=== PATIENT | male | born 1980 | race Caucasian/White ===

== ENCOUNTER 2025-05-05 18:01 | Inpatient (IN) | payer MEDICAID ==
[~2025-05-05] VITALS: Ht 188 cm; Wt 116.1 kg
[~2025-05-05 18:01] MED LIST: CYCL-1 PO
[2025-05-05 20:00] VITALS: BP 116/77; PULSE 81; RESP 14; TEMP 98.4; O2SAT 96
[2025-05-05 20:20] VITALS: RESP 14; O2SAT 96
[2025-05-05] MEDS ORDERED: diphenhydrAMINE 25mg capsule PO PRN (21:30)
[2025-05-05] MEDS ORDERED: acetaminophen 325mg tablet PO PRN (21:30)
[2025-05-05] MEDS ORDERED: loperamide 2mg capsule PO PRN (21:30)
[2025-05-05] MEDS ORDERED: magnesium hydroxide 30ml (MOM) UD suspension PO PRN (21:30)
[2025-05-05] MEDS ORDERED: mag hydrox/Alum hydrox/simeth 30ml oral suspension PO PRN (21:30)
[2025-05-05] MEDS ORDERED: chlorproMAZINE 25mg tablet PO PRN (21:30)
[2025-05-05] MEDS ORDERED: BUSP10TA11 PO (21:36)
[2025-05-05] MEDS ORDERED: HYDR-3686 PO (21:41)
[2025-05-05] MEDS ORDERED: RAME8TAB24 PO (21:41)
[2025-05-05] MEDS: traZODone 50mg tablet PO SCH (23:10)
[2025-05-05] MEDS: hydrOXYzine 25 MG tablet PO ONE (23:15)
[2025-05-05] MEDS: busPIRone 5mg tablet PO ONE (23:15)
[2025-05-05] MEDS: traZODone 50mg tablet PO ONE (23:15)
[2025-05-06 07:00] VITALS: RESP 18; O2SAT 96
[2025-05-06 08:00] VITALS: BP 114/64; PULSE 59; RESP 18; TEMP 97.8; O2SAT 96
[2025-05-06] MEDS: hydrOXYzine 25 MG tablet PO PRN (09:05)
[2025-05-06 10:43] LABS: BASOPHILS % (AUTO) 0.7 % (0-1); EOSINOPHILS # (AUTO) 0.2 X10'3 (0-0.9); EOSINOPHILS % (AUTO) 3.2 % (0-6); HEMOGLOBIN 16.9 g/dl (14.0-17.9); LYMPHOCYTES # (AUTO) 1.6 X10'3 (1.1-4.8); LYMPHOCYTES % (AUTO) 30.6 % (21-51); MEAN CORPUSCULAR HGB CONC 33.1 g/dL (33.0-36.5); MEAN CORPUSCULAR VOLUME 93.7 FL (78-98); MEAN PLATELET VOLUME 7.1 FL (7.4-10.4); MONOCYTES # (AUTO) 0.6 X10'3 (0-0.9); MONOCYTES % (AUTO) 10.5 % (2-12); NEUTROPHILS # (AUTO) 2.9 X10'3 (1.8-7.7); PLATELET COUNT 252 X10'3 (140-440); RED BLOOD COUNT 5.45 X10'6 (4.70-6.10); RED CELL DISTRIBUTION WIDTH 14.7 % (11.5-14.5); WHITE BLOOD COUNT 5.3 X10'3 (4.5-11.0)
[2025-05-06 10:59] LABS: ALANINE AMINOTRANSFERASE 53 U/L (12-78); ALBUMIN 3.4 G/DL (3.4-5.0); ALBUMIN/GLOBULIN RATIO 1.1 (1.1-1.5); ALKALINE PHOSPHATASE 86 IU/L (46-116); ANION GAP 6 (8-16); ASPARTATE AMINO TRANSFERASE 12 U/L (10-37); BILIRUBIN,TOTAL 0.8 MG/DL (0.1-1.0); BLOOD UREA NITROGEN 22 MG/DL (7-18); BUN/CREATININE RATIO 16.9 (10.0-20.0); CHLORIDE 106 MMOL/L (99-107); GLUCOSE 70 MG/DL (70-104); POTASSIUM 4.7 MMOL/L (3.5-5.1); SODIUM 143 MMOL/L (135-145); TOTAL CARBON DIOXIDE 30.6 MMOL/L (24-32); TOTAL PROTEIN 6.5 G/DL (6.4-8.2); eCRCL 85 ML/MIN; eGFR 60 ML/MIN
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
[2025-05-06] MEDS: BUPROPION HCL 150MG XL 24 HR 150 MG TAB PO SCH (14:31)
[2025-05-06] MEDS: busPIRone 5mg tablet PO SCH (14:32)
[2025-05-06] MEDS: acetaminophen 325mg tablet PO PRN (15:15)
[2025-05-06] MEDS ORDERED: ibuprofen tablet 400 MG TABLET PO PRN (15:20)
--- NOTE | 2025-05-06 15:23 | HISTORY AND PHYSICAL ---
History & Physical Providers to CC ~ History of Present Illness Reason for Admit\Complaint: SUICIDAL IDEATION ON A 5150 History of Present Illness This is the hospitalist history and physical exam on patients hospitalized at [facility] [place] [facility]. The patient has chronic low-back pain in his requesting ibuprofen and asked if the patient would like lidocaine patch for which he did accept a lidocaine patch as well. Allergies: Coded Allergies: No Known Allergies (Unverified , 11/14/15) Home Medications Home Medications Active Reported Ramelteon 8 Mg Tablet 1 Tab PO HS 30 Days Atarax* (Hydroxyzine HCl) 25 Mg Tablet 1 Tab PO HS Buspar* (Buspirone HCl) 10 Mg Tablet 1 Tab PO TID Past Medical History Past Medical History Depression, low-back pain Past Surgical History Surgical History Comment Left-sided orchiectomy for hydrocele Family History Family History: FH: alcoholism FATHER FH: depression FATHER MOTHER Past Social History Social History Comment Quit smoking cigarettes, rare alcohol intake, denies any illicit drug use. ROS ROS Except for positives in the HPI the rest of the 14 point review systems is negative Exam Vitals: Vital Signs Date Time Temp Pulse Resp B/P (MAP) Pulse Ox O2 Delivery O2 Flow Rate FiO2 05/06/25 08:00 97.8 59 18 114/64 (81) 96 Room Air General: Gen. No acute distress alert and oriented Lungs clear to ascultation bilaterally, no wheezes rales or rhonchi appreciated Heart normal sinus rhythm no murmurs rubs or clicks noted Abdomen soft nontender bowel sounds are normoactive Lower extremities no clubbing cyanosis, nor edema appreciated bilaterally Diagnostic Data Last Recorded Lab Results: 05/06/25 1034 05/06/25 1034 Problems: (1) Low back pain Status: Acute Additional Plan # suicidal ideation # depression Followed by Psychiatry # kidney disease mild- Recheck a metabolic panel in two days # low-back pain Voltaren gel PRN Daily lidocaine patch The hospitalist service will continue to follow the patient while hospitalized at [facility] Date of Service: May 06, 2025 Billing Provider: OMER BAEZ DO Common Visit Codes: [id number] INP/OBS CARE (MOD) OMER BAEZ DO May 06, 2025 15:23
[2025-05-06 19:00] VITALS: RESP 16; O2SAT 95
[2025-05-06 20:00] VITALS: BP 102/54; PULSE 77; RESP 16; TEMP 98.3; O2SAT 95
[2025-05-06] MEDS: DICLOFENAC SODIUM 1% gel 1 50GM tube TP SCH (21:03)
[2025-05-07 07:30] VITALS: BP 123/74; PULSE 65; RESP 16; TEMP 98; O2SAT 99
[2025-05-07] MEDS: LIDOcaine 5% patch TP SCH (07:31)
--- NOTE | 2025-05-07 11:19 | PROGRESS NOTE ---
Progress Note Dictate Providers to CC ~ Central Line/PICC still needed: N\\A Antibiotic Ordered?: No MRSA Education MRSA Education Provided to pt: No Objective Vitals Vital Signs Date Time Temp Pulse Resp B/P (MAP) Pulse Ox O2 Delivery O2 Flow Rate FiO2 05/07/25 07:30 98.0 65 16 123/74 (90) 99 Room Air Lab Results: 05/06/25 1034 05/06/25 1034 Problem\\Assessment\\Plan Problems/Diagnosis: (1) Major depression, recurrent (2) Suicidal ideation Psychiatrist's Progress Note Date of Service: May 07, 2025 Notes CHART REVIEW Saqib is a 44-year-old male who has been held at [facility] on a 1799 hold for DTS at the presenting with SI. The client was awake and alert. He was orientated x4. He described his mood as apprehensive and depressed. Mood appeared depressed and affect flat. Recall was immediate and thought process linear. No indication or report of HI, VH. The client reports that over the last couple of months he has been experience frequent SI and HI. He states that he has regular intrusive thoughts which he identifies as visions of hanging or cutting himself or driving off a mahad. The client states that he started Lexapro recently but shares that it increased SI so he discontinued use. He shares that he has provided suggested trying another medication but he fears experiencing that level of symptoms again. He reports that he does not want to live at times. Client states that he feels unsafe it does not believe he can safety plan at this time. ASSESSMENT The patient was interviewed in observation room. The patient was actively walking in hallway. The patient endorses "I do not think I am ready to leave I woke up this morning with some suicidal thoughts.' "I do not think it will be safe for me to go home." + SI. Denies HI. Denies AVH. Patient endorses adequate sleep and food intake. The patient is stable no acute distress noted. The patient presents as depressed, cooperative, and engaged during session. Per staff report patient is medication compliant. Per staff report no abnormal behaviors. Will continue daily assessment and adjusting treatment as needed. Closely monitor behavior and response to medication during hospitalization. Results Of any Diagn. Testing REVIEW OF LABS URINE ANALYSIS NEGATIVE URINE TOX SCREEN NEGATIVE WBC 9.9 RBC 5.38 HEMOGLOBIN 17.0 HEMATOCRIT 49.2 PLATELET 258 SODIUM 140 POTASSIUM 3.7 CHLORIDE 105 ANION GAP 14 GLUCOSE 99 BUN 26 CREATININE 1.39 CALCIUM 9.4 ALBUMIN 4.2 ALT 50 AST 31 TSH 1.17 Speech: Other (CIRCUMSTANTIAL) Eye Contact: Avoidant Motor Activity: Normal Affect: Flat Mood: Depressed Orientation Impairment: None Memory Impairment: None Attention: Normal Hallucinations: None Other: None Suicidality: Ideation Homicidality: None Delusions: None Behavior: Cooperative Insight: Poor Judgment: Poor Treatment Patient was started Wellbutrin yesterday we will assess effectiveness for 1-2 more days before increasing dose. WELLBUTRIN 150MG PO DAILY BUSPAR 10MG PO TID Monitoring by Staff, Milieu, Group, and Individual counseling as needed -- According to the [place] Suicide Assessment the above named patient is on Q15 MINUTE CHECKS. [id number]-The patient does not have a good safety plan for discharge at this time. We are still titrating medications to an effective dose while maintaining a therapeutic environment to prevent decompensation and readmission. Total time spent 50 minutes on REVIEW OF Clinical notes [X ] RN notes [X] PCT documentation [X] SW notes Labs [ X] Medications [X] Care trends/care activity [X] Vitals [X] DISCUSSION WITH historical archeologist [X] Staff SW Treatment Team [X] Discharge UNSURE AT THIS TIME. DISCHARGE HOME ONCE STABLE. CODING VISIT-PSYCHIATRY Date of Service: May 07, 2025 Billing Provider: LIOR MCGHEE APRN Psych Common Visit Codes: [id number] INP/OBS CARE(Mod) LIOR MCGHEE APRN May 07, 2025 11:19
[2025-05-07 19:00] VITALS: RESP 16; O2SAT 97
[2025-05-07 20:00] VITALS: BP 145/60; PULSE 71; RESP 16; TEMP 97.6; O2SAT 97
[2025-05-07] MEDS: traZODone 50mg tablet PO ONE (22:15)
--- NOTE | 2025-05-08 07:02 | PROGRESS NOTE ---
Progress Note Dictate Providers to CC ~ Central Line/PICC still needed: N\\A Antibiotic Ordered?: No MRSA Education MRSA Education Provided to pt: No Objective Vitals Vital Signs Date Time Temp Pulse Resp B/P (MAP) Pulse Ox O2 Delivery O2 Flow Rate FiO2 05/07/25 20:00 97.6 71 16 145/60 (88) 97 Room Air Lab Results: 05/06/25 1034 05/06/25 1034 Problem\\Assessment\\Plan Problems/Diagnosis: (1) Major depression, recurrent (2) Suicidal ideation Psychiatrist's Progress Note Date of Service: May 08, 2025 Notes CHART REVIEW Saqib is a 44-year-old male who has been held at [facility] on a 1799 hold for DTS at the presenting with SI. The client was awake and alert. He was orientated x4. He described his mood as apprehensive and depressed. Mood appeared depressed and affect flat. Recall was immediate and thought process linear. No indication or report of HI, VH. The client reports that over the last couple of months he has been experience frequent SI and HI. He states that he has regular intrusive thoughts which he identifies as visions of hanging or cutting himself or driving off a mahad. The client states that he started Lexapro recently but shares that it increased SI so he discontinued use. He shares that he has provided suggested trying another medication but he fears experiencing that level of symptoms again. He reports that he does not want to live at times. Client states that he feels unsafe it does not believe he can safety plan at this time. ASSESSMENT The patient was interviewed in observation room. The patient was actively walking in hallway. The patient endorses "I didn't really sleep much; they had me in the room with a ishmael talking to himself and every time I went to doze off and he would wake me up." The patient has switched rooms."I feel better." I think I am ruminating about past suicidal thoughts instead of new thoughts." "I need to go home and take care of my plants and things." Denies SI. Denies HI. Denies AVH. Patient endorses adequate sleep and food intake. The patient is stable no acute distress noted. The patient presents as less depressed, cooperative, and engaged during session. Per staff report patient is medication compliant. Per staff report no abnormal behaviors. Will continue daily assessment and adjusting treatment as needed. Closely monitor behavior and response to medication during hospitalization. Results Of any Diagn. Testing REVIEW OF LABS URINE ANALYSIS NEGATIVE URINE TOX SCREEN NEGATIVE WBC 9.9 RBC 5.38 HEMOGLOBIN 17.0 HEMATOCRIT 49.2 PLATELET 258 SODIUM 140 POTASSIUM 3.7 CHLORIDE 105 ANION GAP 14 GLUCOSE 99 BUN 26 CREATININE 1.39 CALCIUM 9.4 ALBUMIN 4.2 ALT 50 AST 31 TSH 1.17 Speech: Other (CIRCUMSTANTIAL) Eye Contact: Normal Motor Activity: Normal Affect: Flat Mood: Depressed Orientation Impairment: None Memory Impairment: None Attention: Normal Hallucinations: None Other: None Suicidality: None Homicidality: None Delusions: None Behavior: Cooperative Insight: Fair Judgment: Fair Treatment WELLBUTRIN XR 150MG PO DAILY BUSPAR 10MG PO TID Monitoring by Staff, Milieu, Group, and Individual counseling as needed -- According to the [place] Suicide Assessment the above named patient is on Q15 MINUTE CHECKS. [id number]-The patient does not have a good safety plan for discharge at this time. We are still titrating medications to an effective dose while maintaining a therapeutic environment to prevent decompensation and readmission. Total time spent 45 minutes on REVIEW OF Clinical notes [X ] RN notes [X] PCT documentation [X] SW notes Labs [ X] Medications [X] Care trends/care activity [X] Vitals [X] DISCUSSION WITH it compliance analyst [X] Staff SW Treatment Team [X] Discharge UNSURE AT THIS TIME. DISCHARGE HOME ONCE STABLE. CODING VISIT-PSYCHIATRY Date of Service: May 08, 2025 Billing Provider: LIOR MCGHEE APRN Psych Common Visit Codes: [id number] INP/OBS CARE(Mod) LIOR MCGHEE APRN May 08, 2025 07:02
[2025-05-08 07:30] VITALS: BP 108/53; PULSE 75; RESP 16; TEMP 98.7; O2SAT 98
[2025-05-08 08:07] LABS: ALBUMIN 3.6 G/DL (3.4-5.0); ANION GAP 4 (8-16); BLOOD UREA NITROGEN 17 MG/DL (7-18); BUN/CREATININE RATIO 11.5 (10.0-20.0); CALCIUM 8.9 MG/DL (8.5-10.1); CHLORIDE 105 MMOL/L (99-107); CREATININE 1.48 MG/DL (0.60-1.10); GLUCOSE 91 MG/DL (70-104); POTASSIUM 4.3 MMOL/L (3.5-5.1); SODIUM 139 MMOL/L (135-145); TOTAL CARBON DIOXIDE 29.7 MMOL/L (24-32); eCRCL 75 ML/MIN; eGFR 52 ML/MIN
[2025-05-08] MEDS: NICOTINE POLACRILEX 2 MG LOZENGE BC PRN (10:01)
--- NOTE | 2025-05-08 14:12 | PROGRESS NOTE ---
Daily Progress Note Providers to CC ~ doing well today no new complaint, except occasionally low-back pain Central Line/PICC still needed: No Fuentes-Non Protocol Fuentes Indications Met/Not Met: F/C Indications Not Met Antibiotic Timeout Antibiotic Ordered?: No MRSA Education MRSA Education Provided to pt: No Subjective As above Objective Vital Signs Date Time Temp Pulse Resp B/P (MAP) Pulse Ox O2 Delivery O2 Flow Rate FiO2 05/08/25 07:30 16 98 Room Air 05/08/25 07:30 98.7 75 108/53 (71) Vital signs, stable ,afebrile. Pulse Oximetry reflects adequate oxygenation. BMI is 32, weight 116 kg General: well developed, well nourished. Awake , alert, and oriented x4, resting comfortably in the bed, in no acute distress . Skin: Warm, dry, no pallor, no rash or petechiae. HEENT: Atraumatic, normocephalic, EOMI, anicteric sclera B; pink conjunctiva; PERRLA, normal oropharynx, moist oral and nasal mucosa. Tympanic membrane , nose , throat clear. Neck: Trachea midline. Supple, full range of motion, no JVD, bruit , hepatojugular reflex , lymphadenopathy or masses, or other lesions Cardiac: Regular rhythm, regular rate no murmurs, rubs, or gallops. Normal S1 and S2, no S3 noticed. PMI is normal. Respiratory: Equal breath sounds bilaterally, no tachypnea; lungs clear to auscultation bilaterally, no wheezing ,rub or rales, or crackles. Chest wall is symmetric and without deformity. No signs of trauma. Chest wall is nontender. No signs of respiratory distress. Resonance is normal upon percussion bilaterally. Gastrointestinal: Abdomen symmetric, non-distended, soft, non-tender, normal bowel sounds x4 quadrant, normoactive, no hepatosplenomegaly , no masses , no bruit, no flank pain bilaterally. No voluntary guarding, rebound, or rigidity. No tenderness to percussion. No pulsatile masses. Equal femoral pulses. No Glynn's sign or McBurney point tenderness. Back; no CVA tenderness bilaterally, no deformities. Neck and back are without deformity as well. No tenderness noted on palpation of the spinous processes. Spinous processes are midline. Cervical, thoracic, and lumbar paraspinal muscles are not tender and are without spasm. : normal external genitalia, without lesions, swelling, masses or tenderness. Musculoskeletal: Extremities, normal range of motion, non-tender, muscle strength 5/5 x 4. Negative Homans signs bilaterally on lower extremity. Distal pulses full symmetrical, no clubbing, cyanosis , edema. Neurological: Speech is clear, alert, and oriented x 4. No motor or sensory deficit, deep tendon reflexes normal, cerebellar intact. Cranial nerves II-XII intact. Psych: Alert and or appropriate, normal affect. Vascular: Good distal pulses, which are equal x4; capillary refill less than 2 seconds. Lymphatic, no lymphadenopathy. Result Diagram: 05/06/25 1034 05/08/25 0746 Problem\Assessment\Plan Problems/Diagnosis: (1) Low back pain Assessment/plan (1) Low back pain Status: Acute Additional Plan # suicidal ideation # depression Followed by Psychiatry # kidney disease mild- Recheck a metabolic panel in two days # low-back pain Voltaren gel PRN Daily lidocaine patch The hospitalist service will continue to follow the patient while hospitalized at [facility] Sepsis Screening Reassessment Date: May 08, 2025 Date of Service: May 08, 2025 Billing Provider: YARITZA JOHNSTON MD Common Visit Codes: [id number] INP/OBS CARE(LOW) YARITZA JOHNSTON MD May 08, 2025 14:12
[2025-05-08 15:15] VITALS: BP 127/76; PULSE 90; RESP 20; O2SAT 96
[2025-05-08] MEDS: meclizine 12.5mg tablet PO PRN (15:36)
[2025-05-08 19:00] VITALS: RESP 17; O2SAT 95
[2025-05-08 20:00] VITALS: BP 123/57; PULSE 79; RESP 17; TEMP 98.6; O2SAT 95
[2025-05-09 07:30] VITALS: BP 121/66; PULSE 101; RESP 0; RESP 14; TEMP 98.2; O2SAT 0; O2SAT 100
[2025-05-09] MEDS ORDERED: BUPR-94 PO (14:59)
[2025-05-09] MEDS ORDERED: TRAZ-251 PO (14:59)
[2025-05-09] MEDS ORDERED: BUSP10TA11 PO (14:59)
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
== END 2025-05-09 15:50 | disposition home or self-care (01) | DRG 751 ==
LOC: ADULT MH 19:50
PROVIDERS: ADMIT Psychiatry & Neurology Psychiatry; ATTEND Psychiatry & Neurology Psychiatry
PROC: GZHZZZZ Group Psychotherapy (ICD-10-PCS; principal; 2025-05-06)
PROC: GZ51ZZZ Individual Psychotherapy, Behavioral (ICD-10-PCS; 2025-05-06)
DX: F33.1 Major depressive disorder, recurrent, moderate (principal); R45.851 Suicidal ideations; N28.9 Disorder of kidney and ureter, unspecified; M54.50 Low back pain, unspecified; Z79.899 Other long term (current) drug therapy
CPT/HCPCS: 36415; 80048; 80053; 85025; 87081; A6250; J8597; Q0177